=== PATIENT | male | born 1955 | race Caucasian/White ===

== ENCOUNTER 2017-06-10 07:57 | Inpatient (IN) | payer BC ==
[2017-06-10] MEDS ORDERED: LR 1,000 ML IV (08:15)
[2017-06-10] MEDS ORDERED: LIDOCAINE 1% MDV 20ML VIAL SQ (08:15)
[2017-06-10] MEDS ORDERED: PROPOFOL 200 MG/20 ML VIAL As Ordered ×2 (08:41→10:56)
[2017-06-10] MEDS ORDERED: fentaNYL 100 MCG/2 ML INJECTION (J3010) As Ordered (08:42)
[2017-06-10] MEDS ORDERED: MIDAZOLAM INJ 2 MG/2 ML VIAL (J2250) As Ordered (08:43)
[2017-06-10] MEDS ORDERED: ROCURONIUM BROMIDE 50 MG/5 ML VIAL As Ordered ×3 (08:44→13:30)
[2017-06-10] MEDS ORDERED: LIDOCAINE 2% INJ 100 MG/5 ML SDV (FOR ANES.) As Ordered (08:45)
[2017-06-10] MEDS ORDERED: NEOSTIGMINE 10 MG/10 ML VIAL (J2710) As Ordered (11:09)
[2017-06-10] MEDS ORDERED: GLYCOPYRROLATE INJ 0.2 MG/ML 2 ML VIAL As Ordered (11:09)
[2017-06-10] MEDS ORDERED: KETOROLAC 60 MG/2 ML VIAL (J1885) As Ordered (11:15)
[2017-06-10] MEDS ORDERED: ONDANSETRON 4MG/2ML VIAL (J2405) As Ordered (11:15)
[2017-06-10] MEDS: BUPIVACAINE HCL 0.25% 30 ML VIAL As Ordered (13:50)
[2017-06-10] MEDS ORDERED: MORPHINE 1MG/ML IN 0.9% NACL 100ML IV BAG As Ordered (14:05)
[2017-06-10] MEDS: LR 1,000 ML IV ×2 (14:13→14:45)
[2017-06-10] MEDS ORDERED: EPIDURAL/PCA KEYS XX (14:15)
[2017-06-10] MEDS ORDERED: NALBUPHINE HCL 10 MG/ML AMP (J2300) IV (14:15)
[2017-06-10] MEDS ORDERED: diphenhydrAMINE INJ 50MG/ML VIAL (J1200) IV (14:15)
[2017-06-10] MEDS ORDERED: MORPHINE 1MG/ML IN 0.9% NACL 100ML IV BAG IV (14:15)
[2017-06-10] MEDS ORDERED: NALOXONE INJ 0.4 MG/1 ML VIAL (J2310) IV (14:15)
[2017-06-10] MEDS ORDERED: MORPHINE 10 MG/ML 1ML VIAL (J2270) As Ordered (14:25)
[2017-06-10] MEDS: MORPHINE 10 MG/ML 1ML VIAL (J2270) IV ×5 (14:33→14:53)
[2017-06-10] MEDS ORDERED: METOCLOPRAMIDE INJ 10MG/2ML VIAL (J2765) IV (14:45)
[2017-06-10] MEDS ORDERED: PERCOCET 5MG/325MG TAB PO (14:45)
[2017-06-10] MEDS ORDERED: ONDANSETRON 4MG/2ML VIAL (J2405) IV (14:45)
[2017-06-10] MEDS: fentaNYL 100 MCG/2 ML INJECTION (J3010) IV ×3 (15:10→15:20)
[2017-06-10] MEDS: ONDANSETRON 4MG/2ML VIAL (J2405) IV ×2 (15:35→21:53)
[2017-06-10] MEDS: METOCLOPRAMIDE INJ 10MG/2ML VIAL (J2765) IV (17:19)
[2017-06-10] MEDS: CEFAZOLIN SOD 1 GM in APPROPRIATE DILUENT 1 EA IV ×2 (18:06→23:51)
[2017-06-10] MEDS: ENOXAPARIN 40 MG/0.4 ML SYRINGE (J1650) SC (21:22)
[2017-06-10] MEDS: SENOKOT S TAB PO (21:22)
[2017-06-11] MEDS: LR 1,000 ML IV ×4 (02:14→19:20)
[2017-06-11] MEDS: METOCLOPRAMIDE INJ 10MG/2ML VIAL (J2765) IV ×2 (02:18→10:54)
[2017-06-11 06:28] LABS: BASO % 0.2 % (0.0-1.0); EOS % 0.1 % (0.0-3.0); HEMATOCRIT 41.8 % (42.0-52.0); HEMOGLOBIN 14.6 g/dl (14.0-18.0); IMMATURE GRANULOCYTE % 0.5 % (0-3.0); LYMPH % 8.2 % (24.0-44.0); MEAN CORPUSCULAR HEMOGLOBIN 30.1 pg (27.0-33.0); MEAN CORPUSCULAR HGB CONC 34.9 g/dl (32.0-36.5); MEAN CORPUSCULAR VOLUME 86.2 fl (80.0-96.0); MONO # 0.9 10^3/uL (0.0-0.8); MONO % 7.8 % (0.0-5.0); NEUTROPHILS # 9.7 10^3/uL (1.8-7.7); NEUTROPHILS % 83.2 % (36.0-66.0); PLATELET COUNT, AUTOMATED 340 10^3/uL (150-450); RED BLOOD COUNT 4.85 10^6/uL (4.30-6.10); WHITE BLOOD COUNT 11.7 10^3/uL (4.0-10.0)
[2017-06-11 06:52] LABS: ALBUMIN/GLOBULIN RATIO 0.71 (1.00-1.93); ALKALINE PHOSPHATASE 69 U/L (45-117); ALT/SGPT 18 U/L (12-78); ANION GAP 7 MEQ/L (8-16); AST/SGOT 11 U/L (7-37); BILIRUBIN,TOTAL 1.2 MG/DL (0.2-1.0); BLOOD UREA NITROGEN 9 MG/DL (7-18); CALCIUM LEVEL 8.4 MG/DL (8.8-10.2); CARBON DIOXIDE LEVEL 26 MEQ/L (21-32); CHLORIDE LEVEL 105 MEQ/L (98-107); CREATININE FOR GFR 0.88 MG/DL (0.70-1.30); GLOMERULAR FILTRATION RATE > 60.0 (>49); GLUCOSE, FASTING 115 MG/DL (70-100); POTASSIUM SERUM 3.8 MEQ/L (3.5-5.1); SODIUM LEVEL 138 MEQ/L (136-145); TOTAL PROTEIN 7.2 GM/DL (6.4-8.2)
[2017-06-11] MEDS: CEFAZOLIN SOD 1 GM in APPROPRIATE DILUENT 1 EA IV (08:39)
[2017-06-11] MEDS: ONDANSETRON 4MG/2ML VIAL (J2405) IV ×2 (08:39→15:45)
[2017-06-11] MEDS: SENOKOT S TAB PO ×2 (08:39→20:35)
[2017-06-11] MEDS: diltiaZEM **CD** 180 MG CAP PO (08:40)
[2017-06-11] MEDS: PANTOPRAZOLE 40MG TAB (PROTONIX) PO (15:45)
[2017-06-11] MEDS: ENOXAPARIN 40 MG/0.4 ML SYRINGE (J1650) SC (20:35)
[2017-06-12] MEDS: ONDANSETRON 4MG/2ML VIAL (J2405) IV (05:01)
[2017-06-12] MEDS: LR 1,000 ML IV (05:02)
[2017-06-12] MEDS: ACETAMINOPHEN TAB 650MG DOSE (2X325MG) PO (05:02)
[2017-06-12] MEDS: diltiaZEM **CD** 180 MG CAP PO (09:06)
[2017-06-12] MEDS: SENOKOT S TAB PO (09:06)
[2017-06-12] MEDS: PANTOPRAZOLE 40MG TAB (PROTONIX) PO (09:06)
[2017-06-12] MEDS: KETOROLAC 30 MG/ML VIAL (J1885) IV (13:01)
== END 2017-06-12 13:40 | disposition home or self-care (01) | DRG 227 ==
LOC: M OR 07:57 → M MSPAV 16:42 → M PED 06-11 22:15
PROC: 0WUF0JZ Supplement Abdominal Wall with Synthetic Substitute, Open Approach (ICD-10-PCS; principal; 2017-06-10 09:45)
PROC: 0KNK0ZZ Release Right Abdomen Muscle, Open Approach (ICD-10-PCS; 2017-06-10 09:45)
PROC: 0KNL0ZZ Release Left Abdomen Muscle, Open Approach (ICD-10-PCS; 2017-06-10 09:45)
DX: K43.2 Incisional hernia without obstruction or gangrene (principal); I47.1 Supraventricular tachycardia; Z79.899 Other long term (current) drug therapy

== ENCOUNTER 2024-11-02 11:04 | Day surgery (SDC) | payer MEDICARE, BC ==
[~2024-11-02] VITALS: Ht 177.8 cm; Wt 81.6 kg
[~2024-11-02 11:04] MED LIST: CART180C3 PO; DILT240C42 PO; ELIQ5TAB PO; METO25TA4 PO; NORC1TAB8 PO; OMEP40CA4 PO; PANT40TA29 PO; ROSU10TA61 PO
[2024-11-02] MEDS ORDERED: LOVE1INJ SC (11:53)
[2024-11-02] MEDS ORDERED: GLUCAGON INJ 1 MG VIAL As Ordered ONE (12:30)
[2024-11-02 12:33] VITALS: TEMP 97.5
[2024-11-02 12:59] VITALS: BP 112/70; O2SAT 95
== END 2024-11-02 13:01 | disposition home or self-care (01) ==
LOC: M OPP 11:04
PROVIDERS: ATTEND Surgery
DX: Z12.11 Encounter for screening for malignant neoplasm of colon (principal); R19.5 Other fecal abnormalities; D12.6 Benign neoplasm of colon, unspecified; K64.8 Other hemorrhoids; K57.30 Diverticulosis of large intestine without perforation or abscess without bleeding; I48.91 Unspecified atrial fibrillation; Z79.01 Long term (current) use of anticoagulants; Z79.899 Other long term (current) drug therapy; Z98.0 Intestinal bypass and anastomosis status
CPT/HCPCS: 45385; 88305; J1610